=== PATIENT | female | born 1975 | race American Indian/Alaskan Native ===

== ENCOUNTER 2016-12-04 21:48 | Emergency (ER) | payer MEDICARE ==
[2016-12-04 22:09] VITALS: BP 154/97
[2016-12-04] MEDS ORDERED: TYLENOL PO ONE ×2 (22:09→22:14)
[2016-12-04 23:45] LABS: Basophils % (Auto) 0.2 % (0.0-1.8); Eosinophils % (Auto) 0.1 % (0.0-4.3); Hematocrit 32.7 % (30.3-42.9); Hemoglobin 10.3 gm/dl (10.1-14.3); Mean Corpuscular HGB Conc 32 % (30-34); Mean Corpuscular Volume 76 fl (79-97); Platelet Count 176 K/mm3 (140-440); Red Blood Count 4.28 M/mm3 (3.65-5.03); Red Cell Distribution Width 17.4 % (13.2-15.2); White Blood Count 19.2 K/mm3 (4.5-11.0)
[2016-12-04 23:46] LABS: Mean Corpuscular Hemoglobin 24 pg (28-32)
--- NOTE | 2016-12-05 07:20 | XRay Report ---
CHEST 2 VIEWS INDICATION: Fever. COMPARISON: None similar. FINDINGS: PA and lateral chest radiographs demonstrate normal cardiomediastinal silhouette. Clear lungs. Intact bones. CONCLUSION: No acute disease in the chest. Thank you for the opportunity to participate in this patient's care.
--- NOTE | 2016-12-08 16:28 | ED Elopement Review ---
ED Pt Elopement review - Results review Lab results: Laboratory Tests 12/04/16 23:35 WBC 19.2 H RBC 4.28 Hgb 10.3 Hct 32.7 MCV 76 L MCH 24 L MCHC 32 RDW 17.4 H Plt Count 176 Lymph % (Auto) 8.9 L [place] % (Auto) 6.6 Eos % (Auto) 0.1 Baso % (Auto) 0.2 Lymph # 1.7 [place] # 1.3 H Eos # 0.0 Baso # 0.0 Seg Neutrophils % 84.2 H Seg Neutrophils # 16.2 H - Call Back decision Pt Call Back Decision: No action required
== END 2016-12-05 00:40 | disposition left against medical advice (07) ==
LOC: ED 21:48
DX: R07.9 Chest pain, unspecified (principal); R51 Headache; Z53.21 Procedure and treatment not carried out due to patient leaving prior to being seen by health care provider
CPT/HCPCS: 36415; 71020; 85025; 93005; 93010

== ENCOUNTER 2017-05-29 06:14 | Emergency (ER) | payer MEDICARE ==
[2017-05-29 06:22] VITALS: BP 122/82
[2017-05-29] MEDS ORDERED: TYLENOL PO ONE (06:22)
--- NOTE | 2017-05-29 07:20 | XRay Report ---
FINAL REPORT PROCEDURE: XR WRIST 2V RT TECHNIQUE: RIGHT wrist radiographs, AP and lateral views. HISTORY: RIGHT WRIST PAIN COMPARISON: No prior studies are available for comparison. FINDINGS: Fracture(s)and/or Dislocation(s): None. Alignment: Normal. Joint space(s): Normal. Soft tissues: Normal. Bone mineralization: Normal. Foreign bodies: None. IMPRESSION: Normal Examination
[2017-05-29] MEDS ORDERED: MOTRIN PO ONE (07:46)
--- NOTE | 2017-05-29 07:53 | Emergency Department Report ---
ED Extremity Problem HPI - General Chief complaint: Extremity Injury, Upper Stated complaint: RT WRIST INJURY Time Seen by Provider: 05/29/17 07:35 Source: patient Mode of arrival: Ambulatory Limitations: No Limitations - History of Present Illness Initial comments: PT c/o R wrist injury yesterday. PT states yesterday around 1800, she was playing with her son and she fell and landed on her R wrist. PT states she was out side and landed on concrete. 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 PT denies any other injury. pt denies loc. PT states she drove herself to the hospital. Complaint: extremity pain -: Sudden, days(s) (yesterday ) Location: right, upper extremity History of Same: No Severity scale (0 -10): 10 Quality: sharp, constant Consistency: constant Improves with: rest (mildly ) Worsens with: palpation, other (movement ) Associated Symptoms: denies other symptoms. denies: chest pain, shortness of breath - Related Data Previous Rx's Medication Instructions Recorded Last Taken Type Acetaminophen/Codeine [Tylenol #3] 1 tab PO Q6H PRN #12 tab 05/29/17 Unknown Rx Ibuprofen [Motrin] 600 mg PO Q8H PRN #15 tablet 05/29/17 Unknown Rx Allergies Allergy/AdvReac Type Severity Reaction Status Date / Time No Known Allergies Allergy Verified 12/04/16 22:00 ED Review of Systems ROS: Stated complaint: RT WRIST INJURY Other details as noted in HPI Comment: All other systems reviewed and negative Constitutional: denies: chills, fever Cardiovascular: denies: chest pain Gastrointestinal: denies: abdominal pain Musculoskeletal: other (denies neck pain ). denies: back pain Skin: denies: change in color ED Past Medical Hx - Past Medical History Previous Medical History?: No - Surgical History Past Surgical History?: Yes Additional Surgical History: C SECTION - Social History Smoking Status: Never Smoker Substance Use Type: None - Medications Home Medications: Home Medications Medication Instructions Recorded Confirmed Last Taken Type Acetaminophen/Codeine [Tylenol #3] 1 tab PO Q6H PRN #12 tab 05/29/17 Unknown Rx Ibuprofen [Motrin] 600 mg PO Q8H PRN #15 tablet 05/29/17 Unknown Rx ED Physical Exam - General Limitations: No Limitations General appearance: alert, in no apparent distress - Head Head exam: Present: atraumatic, normocephalic, normal inspection - Eye Eye exam: Present: normal appearance, PERRL, EOMI. Absent: conjunctival injection - ENT ENT exam: Present: normal exam, normal external ear exam - Neck Neck exam: Present: normal inspection, full ROM. Absent: tenderness - Respiratory Respiratory exam: Present: normal lung sounds bilaterally. Absent: respiratory distress, chest wall tenderness, accessory muscle use - Cardiovascular Cardiovascular Exam: Present: regular rate, normal rhythm, normal heart sounds - GI/Abdominal GI/Abdominal exam: Present: soft, normal bowel sounds. Absent: tenderness - Extremities Exam Extremities exam: Present: normal inspection, full ROM, tenderness. Absent: joint swelling - Expanded Upper Extremity Exam Right General: Present: normal inspection Elbow exam: Present: normal inspection, full ROM. Absent: tenderness Forearm Wrist exam: Present: normal inspection, full ROM, other (tenderss to the R wrist, proximal ulnar and radial aspect). Absent: swelling, abrasion, ecchymosis, deformity, tenderness over anatomical snuff box Hand Wrist exam: Present: normal inspection, full ROM. Absent: tenderness Vascular: Present: radial pulse. Absent: vascular compromise - Back Exam Back exam: Present: normal inspection, full ROM. Absent: tenderness, CVA tenderness (R), CVA tenderness (L), muscle spasm, paraspinal tenderness, vertebral tenderness - Neurological Exam Neurological exam: Present: alert, oriented X3, normal gait - Psychiatric Psychiatric exam: Present: normal affect, normal mood - Skin Skin exam: Present: warm, dry, intact, normal color ED Course Vital Signs 05/29/17 06:17 Temperature 97.7 F Pulse Rate 74 Respiratory 18 Rate Blood Pressure 122/82 O2 Sat by Pulse 100 Oximetry - Reevaluation(s) Reevaluation #1: 05/29/17 07:59 PT aware of XR results. PT aware that she may need repeat images in 7-10 days if her pain persists. PT is aware of plan of care and she has no questions at this time. Reevaluation #2: 05/29/17 08:03 PT placed in velcro wrist splint by nursing staff, pt NVI and reports decrease in pain. - Pulse Oximetry Interpretation Digit-Finger Initial Pulse Oximetry Readin Actions Taken: none ED Medical Decision Making - Radiology Data Radiology results: report reviewed XR R wrist - NAP - Differential Diagnosis fracture, contusion, strain Critical Care Time: No Critical care attestation.: If time is entered above; I have spent that time in minutes in the direct care of this critically ill patient, excluding procedure time. ED Disposition Clinical Impression: Injury of right wrist Qualifiers: Encounter type: initial encounter Qualified Code(s): S69.91XA - Unspecified injury of right wrist, hand and finger(s), initial encounter Disposition: TO HOME OR SELFCARE Is pt being admited?: No Does the pt Need Aspirin: No Condition: Stable Instructions: Wrist Injury (ED), RICE Therapy (ED), Wrist Sprain (ED) Additional Instructions: No driving or alcohol after taking Tylenol #3 Wear your splint when up and active IF you have continued pain, you may need repeat XRs in 7-10 days - your PMD can order this for you Prescriptions: Acetaminophen/Codeine [Tylenol #3] 1 tab PO Q6H PRN #12 tab PRN Reason: Pain , Severe (7-10) Ibuprofen [Motrin] 600 mg PO Q8H PRN #15 tablet PRN Reason: Pain Referrals: PRIMARY CARE, [Primary Care Provider] - 3-5 Days LEEANN BRADY MD [Staff Physician] - 3-5 Days [facility] [Outside] - 3-5 Days Time of Disposition: 08:02
== END 2017-05-29 08:07 | disposition home or self-care (01) ==
LOC: ED 06:14
DX: S69.91XA Unspecified injury of right wrist, hand and finger(s), initial encounter (principal); W18.30XA Fall on same level, unspecified, initial encounter; Y93.89 Activity, other specified; Y99.9 Unspecified external cause status; Y92.89 Other specified places as the place of occurrence of the external cause

== ENCOUNTER 2017-06-16 12:02 | Emergency (ER) | payer MEDICARE ==
[2017-06-16 12:37] VITALS: BP 110/57
--- NOTE | 2017-06-16 12:37 | Emergency Department Report ---
Chief Complaint: Chest Pain Stated Complaint: CHEST PAIN/RT ARM INJURY Time Seen by Provider: 06/16/17 12:34 - HPI History of Present Illness: Pt states her wrist still hurts from previous injury PT also reports intermittent chest pain x a few days. - ROS Review of Systems: + wrist pain + chest pain - changes in appetite - Exam Physical Exam: pt looks well, non toxic. RUE in Velcro wrist splint rrr MSE screening note: Focused history and physical exam performed. Due to findings the following was ordered: xr, labs, ekg ED Disposition for MSE Condition: Stable
[2017-06-16 13:31] LABS: Basophils % (Auto) 0.7 % (0.0-1.8); Eosinophils % (Auto) 1.2 % (0.0-4.3); Hematocrit 33.2 % (30.3-42.9); Hemoglobin 10.5 gm/dl (10.1-14.3); Mean Corpuscular HGB Conc 32 % (30-34); Mean Corpuscular Volume 76 fl (79-97); Platelet Count 189 K/mm3 (140-440); Red Blood Count 4.34 M/mm3 (3.65-5.03); Red Cell Distribution Width 17.7 % (13.2-15.2); White Blood Count 8.3 K/mm3 (4.5-11.0)
[2017-06-16 13:37] LABS: Mean Corpuscular Hemoglobin 24 pg (28-32)
[2017-06-16 13:41] LABS: INR 1.04 (0.87-1.13)
[2017-06-16 13:44] LABS: Partial Thromboplastin Time 31.4 Sec. (24.2-36.6)
--- NOTE | 2017-06-16 13:46 | XRay Report ---
CHEST 2 VIEWS INDICATION: Chest pain. COMPARISON: 12/04/2016. FINDINGS: PA and lateral chest radiographs demonstrate normal cardiomediastinal silhouette. Clear lungs. Intact bones. CONCLUSION: No acute disease in the chest. Thank you for the opportunity to participate in this patient's care.
[2017-06-16 13:50] LABS: Alanine Aminotransferase 7 units/L (7-56); Albumin 4.1 g/dL (3.9-5); Albumin/Globulin Ratio 1.1 %; Alkaline Phosphatase 100 units/L (35-129); Anion Gap 18 mmol/L; BUN/Creatinine Ratio 17.14; Blood Urea Nitrogen 12 mg/dL (7-17); Calcium 8.2 mg/dL (8.4-10.2); Carbon Dioxide 23 mmol/L (22-30); Chloride 104.2 mmol/L (98-107); Glucose 89 mg/dL (65-100); Potassium 3.9 mmol/L (3.6-5.0); Sodium 141 mmol/L (137-145)
--- NOTE | 2017-06-29 23:43 | ED Elopement Review ---
ED Pt Elopement review - Results review Lab results: Laboratory Tests 06/16/17 06/16/17 06/16/17 12:58 12:58 12:58 WBC 8.3 RBC 4.34 Hgb 10.5 Hct 33.2 MCV 76 L MCH 24 L MCHC 32 RDW 17.7 H Plt Count 189 Lymph % (Auto) 28.3 [place] % (Auto) 9.7 H Eos % (Auto) 1.2 Baso % (Auto) 0.7 Lymph # 2.4 [place] # 0.8 Eos # 0.1 Baso # 0.1 Seg Neutrophils % 60.1 Seg Neutrophils # 5.0 PT 13.5 INR 1.04 APTT 31.4 Sodium 141 Potassium 3.9 Chloride 104.2 Carbon Dioxide 23 Anion Gap 18 BUN 12 Creatinine 0.7 Estimated GFR > 60 BUN/Creatinine Ratio 17.14 Glucose 89 Calcium 8.2 L Total Bilirubin 0.30 AST 14 ALT 7 Alkaline Phosphatase 100 Troponin T < 0.010 Total Protein 8.0 Albumin 4.1 Albumin/Globulin Ratio 1.1 HCG, Qual 06/16/17 06/16/17 12:58 18:56 WBC RBC Hgb Hct MCV MCH MCHC RDW Plt Count Lymph % (Auto) [place] % (Auto) Eos % (Auto) Baso % (Auto) Lymph # [place] # Eos # Baso # Seg Neutrophils % Seg Neutrophils # PT INR APTT Sodium Potassium Chloride Carbon Dioxide Anion Gap BUN Creatinine Estimated GFR BUN/Creatinine Ratio Glucose Calcium Total Bilirubin AST ALT Alkaline Phosphatase Troponin T < 0.010 Total Protein Albumin Albumin/Globulin Ratio HCG, Qual Negative - Call Back decision Pt Call Back Decision: Pt to F/U with PMD
== END 2017-06-17 01:10 | disposition left against medical advice (07) ==
LOC: ED 12:02
DX: R07.9 Chest pain, unspecified (principal); M25.531 Pain in right wrist; Z53.21 Procedure and treatment not carried out due to patient leaving prior to being seen by health care provider
CPT/HCPCS: 36415; 71020; 80053; 84484; 84703; 85025; 85610; 85730; 93005; 93010